=== PATIENT | male | born 1970 | race Two or more races ===

== ENCOUNTER 2024-09-16 14:33 | Outpatient (RCR) | payer MEDICARE, SELFPAY ==
--- NOTE | 2024-09-16 17:54 | CTCCONSULT_ITS ---
[facility] [address] [place], [place] [address] Consultation Note Date: 09/16/2024 MR#: [id number] Name: STEPHANIE MURRELL : 1970 Dx: C40.21 Malignant neoplasm of right lower limb. Referring physician. Thomas Mora [facility] Reason for consultation. Patient with giant cell tumor right femur History of Present Illness: Patient is a 53-year-old gentleman with increasing pain erythema right proximal lower extremity. Patient underwent biopsy using 18-gauge core x 4 which revealed giant cell tumor with abundant necrosis. According to comment variants of undifferentiated pleomorphic sarcoma malignant melanoma with osteoclast like giant cells or leiomyosarcoma with osteoclast like giant cells were among the differentials. Sister took patient to [facility] ER and patient was admitted. CT scan 08/28/2024 revealed no definite evidence of mets to abdomen or pelvis although some nonspecific findings involving left hepatic lobe possible small cysts or hemangioma. Admitted for 2 weeks and discharged 09/10/2024, patient received 1 cycle of AIM chemotherapy, and was referred to [facility] for additional chemo. Could not continue care there or other hospitals due to insurance issues. Patient has an appointment at [facility] orthopedic oncology Sunday. Bone marrow biopsy 09/05/2024 showed hypocellular marrow with relative myeloid hyperplasia with neutrophilia. By flow cytometry there is myeloid dysmaturation. Past Medical History: History of schizophrenia hypertension Meds. Laxatives ondansetron tramadol olanzapine metoprolol fluoxetine Social History: Patient lives alone in [place] and has sister nearby who cares for him patient has schizophrenia currently wheelchair-bound. Review of Systems: Has pain in right lower extremity has had nausea symptoms with chemo Physical Exam: General: Tired appearing gentleman in no acute distress in wheelchair. HEENT: Atraumatic no cephalic extraocular is intact no oral lesions no cervical or supraclavicular adenopathy CV: Chest good auscultation heart regular rhythm ABD: Soft no exam or tenderness EXT: Large right thigh mass with erythema and some drainage due to ulceration noted Assessment:1. 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 No definite evidence of distant mets on recent CT. 3. Received 1 cycle of AIM chemo as inpatient at [facility] early August. 4. Referred for additional chemo at [facility]. 5. Refer to Dr. Herron medical oncologist 6. Has ortho oncology eval next Sunday at [facility]. 7. Gave sister care provider my email address that she can contact me after. Cc: [facility] Electronically signed by: Sukumar Pace MD, DABR 09/16/2024 5:52 PM
== END 2024-09-29 23:59 | disposition home or self-care (01) ==
LOC: SCTC 14:33
PROVIDERS: PCP Nurse Anesthetist, Certified Registered; Referring Provider Nurse Anesthetist, Certified Registered; Visit Provider Radiology Therapeutic Radiology
DX: D48.0 Neoplasm of uncertain behavior of bone and articular cartilage (principal)
CPT/HCPCS: 99213; G0463

== ENCOUNTER 2024-12-04 09:56 | Outpatient (RCR) | payer MEDICARE, MEDICAID, SELFPAY ==
--- NOTE | 2024-12-08 00:28 | CTCFLWUP_ITS ---
Patient: STEPHANIE MURRELL : 1970 Page 2 of 3 FOLLOW UP NOTE DATE OF SERVICE: 12/04/2024 NAME: STEPHANIE MURRELL ACCOUNT: [id number] : 1970 AGE: 53 INTERVAL HISTORY: Patient is 53-year-old male with schizophrenia and hypertension. Patient started complaining of right lower extremity pain about 7 months ago. Patient was eventually diagnosed with giant cell tumor and referred to [facility]. Patient underwent surgery and was told that en bloc resection of the tumor was completed with no residual keep tumor. Patient had a giant cell tumor and no metastatic disease. Patient is scheduled for PET CT scan at [facility] and also scheduled for orthopedic oncology to see patient at [facility] ONCOLOGY HISTORY: DIAGNOSIS: Malignant neoplasm of long bones of right lower limb [ICD10] C40.21 HISTORY OF PRESENT ILLNESS: 53-year-old with a schizophrenia and hypertension and newly diagnosed giant cell tumor of the right femur status post resection of the tumor OTHER MEDICAL HISTORY/CONDITIONS: Giant cell neoplasm right femur SCHIZOPHRENIA ANEMIA CYST??NECK??X?30?YRS?AGO FAMILY HISTORY: Cancer History:?GRANDMOTHER/ COLON MATERNAL /GR GM BREAST SOCIAL HISTORY: Occupational?History:?DISABLED Education?Level:?Completed 9th grade Marital?Status:?Single Tobacco Use:?Quit 2 yrs ago - Smoked for 2 yrs - 5 cigarettes/day ETOH?Use:?SOCIAL Drug?Note:?DENIES Social History Note:?LIVES ALONE WITH SISTER ASSISTING NEEDED MEDICATIONS: 1. ferric maltol - 30 mg Twice a Day 2. metoprolol tartrate - 25 mg Daily 3. Prozac - 20 mg Daily 4. Senna Plus (senna-docusate) - 50 mg Daily 5. tramadol - 50 mg Three times a day 6. Wellbutrin - 150 mg Daily 7. Zofran - 4 mg Three times a day 8. Zyprexa - 20 mg Daily Medications Last Reconciled by Marly Jarrett LVN on 09/16/2024 (Reconcile on Approval: ?) ALLERGIES: No Known Drug Allergies REVIEW OF SYSTEMS: A complete 14-point review of systems was performed and is negative except as noted in interval history. PHYSICAL EXAMINATION: VITAL SIGNS: Temperature?97.6, B/P?112/79, Height?74?inches, Oxygen?Saturation?97% Weight?150?lbs PAIN: 0 - No pain ECOG Performance Status: 4 - Completely disabled; no self-care; bedridden GENERAL APPEARANCE: Appears well, in no apparent distress, appropriately interactive. HEENT: Normocephalic, no temporal wasting, normal conjunctiva, no scleral icterus, normal hearing, lips without lesions, neck normal range of motion. CARDIOVASCULAR: Not assessed. PULMONARY: Normal respiratory effort, no respiratory distress or use of accessory muscles, speaking in full sentences, no tachypnea. EXTREMITIES: No pedal edema or cyanosis. SKIN: Normal skin appearance. NEUROLOGIC: Alert and oriented x4. PSHYCHIATRIC: Appropriate affect, mood normal, behavior normal, intact thought and speech. LABORATORY DATA: I have personally reviewed and interpreted each of the patient?s relevant lab tests, abnormal findings are below: Date ASSESSMENT/PLAN: Giant cell tumor Patient had a giant cell tumor No surgical notes are available at the time of appointment Imaging at [facility] showed large complex cystic appearing mass with enhancing peripheral nodular component measuring up to 39.1 cm most consistent with a sarcoma or low-grade tumor subtle periosteal reaction over the lateral aspect of the proximal femoral diaphysis Patient received 1 cycle of AIM chemotherapy and was transferred to [facility] after patient opened up wound over the tumor site As per sister was told that full complete resection was done at [facility] and no metastatic disease was noted.. Margins were negative and no further treatment was recommended I do not have any records available for review I do not have final pathology reports I asked my medical staff to get the reports and then I can review to make further recommendation Advised sister to follow-up at [facility] and [facility] for management and follow-up Patient already have PET CT scan ordered at [facility] Will get bone density There is an indication to start on bone strengthening medications and giant cell tumor even if Mr. Murrell do not have any residual tumor ORDERS: Order # Description [id number] DXA L-Spine and Hip [id number] Comprehensive Metabolic Panel - 12 + CBC with Auto Diff + MD Follow Up 2 Months RETURN TO CLINIC: I reviewed the diagnosis, prognosis, and recommended treatment/procedure options with the patient (and/or their legal maintenance representative), including the potential benefits, risks, side effects and alternative therapies. We also discussed the option of no treatment and the possibility of clinical trial participation, if applicable. All questions were addressed, and they demonstrated understanding. They provided informed consent to proceed with the proposed plan of care. BILLING AND COMPLIANCE: I reviewed external records from providers outside my specialty as summarized above. I spent a total of 50 minutes on this patient?s care on the day of their visit excluding time spent related to any billed procedures. This time includes time spent with the patient as well as time spent documenting in the medical record, reviewing patients records and tests, obtaining history, placing orders, communicating with other healthcare professionals, counseling the patient, family or caregiver, and/or care coordination for the diagnoses above. Electronically Signed by: {Object.Sanct_ID*PnP.NameFL@M}, {Object.Sanct_ID*PnP.Suffix@U} D: {Object.Sanct_Date} T: {Object.Sanct_Time} CC: PCP: Referring: Dani Herron This document was completed utilizing speech recognition software. Grammatical errors, random word insertions, pronoun errors, and incomplete sentences are an occasional consequence of this system due to software limitations, ambient noise, and hardware issues. Any formal questions or concerns about the content, text or information contained within the body of this dictation should be directly addressed to the provider for clarification.
== END 2024-12-30 23:59 | disposition home or self-care (01) ==
LOC: SCTC 09:56
PROVIDERS: Referring Provider Internal Medicine Hematology & Oncology; Visit Provider Internal Medicine Hematology & Oncology
DX: C40.21 Malignant neoplasm of long bones of right lower limb (principal)
CPT/HCPCS: 99213; G0463